=== PATIENT | female | born 1945 | race Caucasian/White ===

== ENCOUNTER 2019-10-25 15:14 | Emergency (ER) | payer MEDICARE, BC ==
[~2019-10-25] VITALS: Ht 167.6 cm; Wt 52.2 kg
[2019-10-25 15:56] VITALS: BP 131/64
--- NOTE | 2019-10-25 16:05 | NUR ---
SEEN AND EXAMINED BY .
--- NOTE | 2019-10-25 17:41 | NUR ---
Patient discharged to home in stable condition. Written and verbal after care instructions given. Patient verbalizes understanding of instruction.
== END 2019-10-25 17:42 | disposition home or self-care (01) ==
LOC: ER 15:23
DX: S93.691A Other sprain of right foot, initial encounter (principal); Z60.2 Problems related to living alone; X50.1XXA Overexertion from prolonged static or awkward postures, initial encounter; Y93.89 Activity, other specified; Y92.89 Other specified places as the place of occurrence of the external cause; Y99.8 Other external cause status
CPT/HCPCS: 73630-TC